=== PATIENT | male | born 1965 | race Two or more races ===

== ENCOUNTER 2017-12-21 20:57 | Emergency (ER) | payer OTHER ==
[2017-12-21 21:07] VITALS: BP 156/96
[2017-12-21] MEDS ORDERED: DEXAMETHASONE 4 MG TABLET PO ONE (21:59)
[2017-12-21] MEDS ORDERED: CETIRIZINE 10 MG TABLET PO ONE (22:00)
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
== END 2017-12-21 22:10 | disposition home or self-care (01) ==
LOC: ER 20:57
DX: L50.0 Allergic urticaria (principal); J34.89 Other specified disorders of nose and nasal sinuses; F17.200 Nicotine dependence, unspecified, uncomplicated; Z77.120 Contact with and (suspected) exposure to mold (toxic)
CPT/HCPCS: 99283